=== PATIENT | male | born 1950 | race Caucasian/White ===

== ENCOUNTER → 2020-01-28 15:51 | Outpatient (CLI) | payer MEDICARE, OTHER, SELFPAY ==
--- NOTE | 2020-01-28 | DI.MRI.S_ITS ---
PROCEDURE: MR HEAD/BRAIN WO CON INDICATIONS: Sudden idiopathic hearing loss, right ear TECHNIQUE: Non-contrast axial T1 spin echo, axial T2 fast spin echo, sagittal and axial FLAIR, coronal T2 fast spin echo, axial gradient echo, axial diffusion and ADC through the brain. In this patient, thin-section T2 space imaging was acquired. In this patient, thin section precontrast T1 weighted fat saturated images were obtained through the skull base. The patient declined the scheduled contrast administration. COMPARISON: None. FINDINGS: Image quality: Diagnostic, with note made of motion artifact. Study limited by lack of IV contrast administration. CSF spaces: Ventricles appear symmetric in size and shape. Basal cisterns are patent. No extra-axial fluid collections. Brain: No intracranial bleeds or mass effects. There is cerebral volume loss for age. There are periventricular and deep white matter chronic small vessel ischemic changes. Brainstem appears normal. Diffusion-weighted images show no acute ischemic insults. No chronic ischemic insults. Normal intravascular flow voids are present. In this patient with this given history, scrutiny is given to the cerebellopontine angle cisterns and the internal auditory canals. To limits of this study that is performed without contrast, no masses can be seen within these regions. Skull and face: Calvarial bone marrow is normal in signal. Orbits are normal. Sinuses: Sinuses and mastoids are clear. IMPRESSION: No imaging explanation is found for this patient's presenting symptoms. Note is made of age-appropriate brain parenchymal volume loss and chronic small vessel ischemic changes. No findings of acute or subacute infarction can be seen. Dictated by: Chilango Mcmullen M.D. on 01/28/2020 at 16:23 Approved by: Chilango Mcmullen M.D. on 01/28/2020 at 16:25
== END ==
PROVIDERS: PCP Family Medicine; Referring Provider Otolaryngology; Visit Provider Otolaryngology
DX: H91.21 Sudden idiopathic hearing loss, right ear (principal)
CPT/HCPCS: 70551